=== PATIENT | male | born 1990 | race Caucasian/White ===

== ENCOUNTER 2016-10-30 11:38 | Emergency (ER) | payer SELFPAY ==
--- NOTE | 2016-10-30 11:59 | ER Document Report ---
ED Wound - General Chief Complaint: Wound Infection Stated Complaint: ABSCESS/LEFT WRIST Notes: Patient is a 25-year-old male, past medical history ADHD, presents with 3 days of a left wrist abscess that is increasing in size. He thinks that he was bitten by ants a few days ago. He denies numbness, tingling, fevers, drainage out of the wound or injury. TRAVEL OUTSIDE OF THE [place] IN LAST 30 DAYS: No - Related Data Allergies/Adverse Reactions: clarithromycin [From Biaxin] Adverse Reaction (Verified 10/30/16 11:52) Past Medical History - General Information source: Patient - Social History Smoking Status: Never Smoker Family History: Reviewed & Not Pertinent Renal/ Medical History: Denies: Hx Peritoneal Dialysis - Immunizations Hx Diphtheria, Pertussis, Tetanus Vaccination: Yes Review of Systems - Review of Systems Notes: REVIEW OF SYSTEMS: CONSTITUTIONAL: -fevers, -chills EENT: -eye pain, -difficulty swallowing, -nasal congestion CARDIOVASCULAR:-chest pain, -syncope. RESPIRATORY: -cough, -SOB GASTROINTESTINAL: -abdominal pain, - nausea, -vomiting, -diarrhea GENITOURINARY: -dysuria, -hematuria MUSCULOSKELETAL: -back pain, -neck pain SKIN: +left wrist abscess HEMATOLOGIC: -easy bruising or bleeding. LYMPHATIC: -swollen, enlarged glands. NEUROLOGICAL: -altered mental status or loss of consciousness, -headache, - neurologic symptoms PSYCHIATRIC: -anxiety, -depression. ALL OTHER SYSTEMS REVIEWED AND NEGATIVE. Physical Exam - Vital signs Vitals: Temp Pulse Resp BP Pulse Ox 98.7 F 73 16 127/62 H 100 10/30/16 11:40 10/30/16 11:40 10/30/16 11:40 10/30/16 11:40 10/30/16 11:40 - Notes Notes: PHYSICAL EXAMINATION: GENERAL: Well-appearing, well-nourished and in no acute distress. HEAD: Atraumatic, normocephalic. EYES: Pupils equal round and reactive to light, extraocular movements intact, sclera anicteric, conjunctiva are normal. ENT: nares patent, oropharynx clear without exudates. Moist mucous membranes. NECK: Normal range of motion, supple without lymphadenopathy LUNGS: Breath sounds clear to auscultation bilaterally and equal. No wheezes rales or rhonchi. HEART: Regular rate and rhythm without murmurs ABDOMEN: Soft, nontender, normoactive bowel sounds. No guarding, no rebound. No masses appreciated. EXTREMITIES: 3 cm pointed abscess with surrounding erythema over lateral left wrist, strong radial and ulnar pulses, brisk capillary refill, all tendons intact, normal range of motion, no pitting or edema. No cyanosis. NEUROLOGICAL: Cranial nerves grossly intact. Normal speech, normal gait. Normal sensory, motor, and reflex exams. PSYCH: Normal mood, normal affect. Course - Re-evaluation Re-evalutation: Abscess I&D'ed with moderate amount of pus. Will treat with doxycycline because of surrounding cellulitis. Patient given strict return precautions and he understands. - Vital Signs Vital signs: Temp Pulse Resp BP Pulse Ox 98.7 F 73 16 127/62 H 100 10/30/16 11:40 10/30/16 11:40 10/30/16 11:40 10/30/16 11:40 10/30/16 11:40 Procedures - Incision and Drainage Left Lateral Wrist Time completed: 12:15 Type: Simple Anesthetic type: 1% Lidocaine mL's of anesthetic: 7 Blade size: 11 I&D procedure: Betadine prep applied Incision Method: Incision made by scalpel Amount/type of drainage: 5 mL purulent drainage Discharge - Discharge Clinical Impression: Abscess, wrist Condition: Good Disposition: HOME, SELF-CARE Additional Instructions: ABSCESS: You have an abscess (boil). This a pus-forming infection, usually due to staph. Some boils may be left to drain on their own, but most require lancing. From the time the tender lump first appears, it may be three or four days before the abscess is ready to jonny. Local heat and rest help at this stage of treatment. An antibiotic may prevent spread of the infection. Once the abscess is opened, packing may be placed into it. This is done so pus is not sealed inside by premature closure of the cavity. The packing will be removed at your follow-up visit or you may be advised to remove it yourself at home. Sometimes this packing must be replaced a few times during healing. The wound will heal with surprisingly little scar. Depending on the size and location of an abscess, healing can take one to four weeks. You may shower and wash the area around the incision site two or three times a day. Antibiotics may be prescribed, but are usually not necessary after an abscess has been drained. If you develop fever, chills, worsening pain, or increasing swelling in the area, call the doctor or return immediately. POST INCISION AND DRAINAGE: You have had an incision made to allow drainage of an abscess. The incision must remain open so that pus and debris can drain from the wound. If the abscess cavity is large, packing is placed. This keeps the tissues from collapsing and trapping pus inside, while the body shrinks the cavity. The packing may need to be replaced every day or two. The physician will instruct you on the packing. Keep a bulky dressing over the area. Replace it if it becomes saturated with blood or pus. Do not disturb the packing (if present). You may shower and cleanse the area with gentle soap and warm water two or three times a day. Local warmth may be soothing, and may promote faster healing. Return if you develop high fever or chills, or if you note spreading redness, increasing swelling, or increasing tenderness. MRSA CELLULITIS: You have an infection of your skin and underlying soft tissues called cellulitis. This is due to bacteria, which can enter through any break in the skin, or even through an irritated hair follicle. Untreated, cellulitis will usually worsen and may form an abscess which requires draining. Although many bacterial organisms can cause cellulitis and abscess formations, the most likely bacteria is Methicillin-Resistant Staph Aureus, or MRSA for short. Antibiotics are required. Usually, warm packs or warm soaks, and elevation of the infected area are recommended. You should start getting better within 24 to 36 hours. Most infections respond quickly to the right medication. Follow-up care is important, however, to check for abscess (boil) formation, unsuspected foreign body, or resistant infection. If you develop fever, chills, or if the area of infection is becoming rapidly more swollen or painful, call the doctor at once. DOXYCYCLINE: Doxycycline (Vibramycin, Doryx) is an antibiotic of the tetracycline family. This type of drug is useful for infections of the respiratory tract and genital tract, and is sometimes used for intestinal infections. Unlike most tetracyclines, doxycycline can be taken with food. It is longer acting, and (usually) less prone to side effects than regular tetracycline. Tetracycline antibiotics can stain immature teeth and SHOULD NOT BE TAKEN BY CHILDREN, NURSING MOTHERS, OR WOMEN. Tetracyclines can make you more prone to sunburn. Abdominal cramping, nausea, and diarrhea are occasional side effects. Women may experience vaginal yeast infections. Call the doctor at once if you develop hives, itching, shortness of breath , or lightheadedness. FOLLOW-UP CARE: Most simple abscesses will not require a follow up visit. If you had packing placed in the abscess, remove it as instructed by the physician. If you have been referred to a physician for follow-up care, call the physicians office for an appointment as you were instructed or within the next two days. If you experience worsening or a significant change in your symptoms, return to the Emergency Department at any time for re-evaluation. Prescriptions: Doxycycline Hyclate 100 mg PO BID #14 capsule
[2016-10-30] MEDS ORDERED: LIDOCAINE 1% INJ-PF (10 MG/ML) 30 ML SDV ONE (12:00)
[2016-10-30] MEDS ORDERED: BACITRACIN ZINC OINTMENT 15 GM TP ONE (12:11)
[2016-10-30] MEDS ORDERED: LIDOCAINE 2% INJ-PF (20 MG/ML) 10 ML AMPUL INFIL ONE (12:11)
[2016-10-30 12:21] VITALS: BP 131/66
== END 2016-10-30 12:20 | disposition home or self-care (01) ==
LOC: ER 11:38
PROC: 0H9EXZZ Drainage of Left Lower Arm Skin, External Approach (ICD-10-PCS; principal; 2016-10-30)
DX: L02.414 Cutaneous abscess of left upper limb (principal); F90.9 Attention-deficit hyperactivity disorder, unspecified type; Z88.3 Allergy status to other anti-infective agents
CPT/HCPCS: 99283; J3490

== ENCOUNTER 2016-11-02 21:18 | Emergency (ER) | payer SELFPAY ==
[2016-11-02] MEDS ORDERED: NORMAL SALINE 1000 ML 1,000 ML IV ONE (23:34)
[2016-11-02] MEDS ORDERED: ACETAMINOPHEN 325 MG TABLET PO ONE (23:34)
[2016-11-02] MEDS ORDERED: ONDANSETRON HCL INJ/PF 4 MG/2 ML SDV IV ONE (23:34)
--- NOTE | 2016-11-02 23:40 | ER Document Report ---
ED GI/ - General Chief Complaint: Fever, chills Stated Complaint: FEVER Mode of Arrival: Ambulatory Information source: Patient TRAVEL OUTSIDE OF THE [place] IN LAST 30 DAYS: No - HPI Patient complains to provider of: Vomiting Notes: 11/02/16 23:37 Patient arrives with complaints of fever. The patient was seen 3 days ago for an abscess to the left wrist. He had this I&D'd and was discharged home on doxycycline. He's been taking the doxycycline. He states that this site looks significantly better than when he was here 3 days ago. He states that yesterday started having abdominal pain and vomiting. Also had associated fever. States that yesterday he vomited once and states that it was red in color. He's had several episodes of vomiting since that time and has had no redness to it. He reports that he has frequent bowel movements, and that a few weeks ago he noticed a bowel movement that was nothing but blood. He denies any diarrhea or bloody stool currently. Tender fever since yesterday. He complains of some mid and left sided abdominal pain at this time. He denies any chest pain or shortness breath. He denies any dysuria or hematuria. Nothing seems to make his pain better or worse. He also complains of cold chills. No rash. No flank pain. No other complaints at this time. - Related Data Allergies/Adverse Reactions: clarithromycin [From Biaxin] Adverse Reaction (Verified 10/30/16 11:52) Past Medical History - Social History Smoking Status: Unknown if Ever Smoked Chew tobacco use (# tins/day): No Frequency of alcohol use: None Drug Abuse: None Family History: Reviewed & Not Pertinent Renal/ Medical History: Denies: Hx Peritoneal Dialysis - Immunizations Hx Diphtheria, Pertussis, Tetanus Vaccination: Yes Review of Systems - Review of Systems -: Yes All other systems reviewed and negative Physical Exam - Vital signs Vitals: Temp Pulse BP Pulse Ox 100.7 F H 121 H 128/65 H 100 11/02/16 21:41 11/02/16 21:41 11/02/16 21:41 11/02/16 21:41 - Notes Notes: GENERAL: alert, cooperative, nontoxic, no distress. HEAD: normocephalic, atraumatic EYES: conjunctiva pink without discharge, no external redness or swelling. EARS: no external swelling, no external redness NOSE: atraumatic, no external swelling MOUTH/THROAT: mucous membranes moist and pink, posterior pharynx without erythema, swelling, exudate. No trismus or drooling. NECK: soft, supple, full range of motion, no meningismus. CHEST: no distress, lungs clear and equal throughout. No wheezing, rales, rhonchi. CARDIAC: regular rate and rhythm, no murmur, normal capillary refill, normal pulses. No peripheral edema noted. ABDOMEN: Soft, mild tenderness to palpation to the left mid abdomen. No rebound tenderness or guarding.. BACK: full range of motion, no CVA tenderness. EXTREMITIES: full range of motion of all extremities. No redness, no swelling. NEURO: alert and oriented 3, no focal deficits, full range of motion of all extremities. PYSCH: appropriate mood, affect. Patient is cooperative. SKIN: pink, warm, dry, no rash. Healing abscess to the left wrist. There is no significant surrounding erythema. There is no purulent drainage. There is no fluctuance. No cellulitis to the arm. Normal pulse and sensation distally. Course - Re-evaluation Re-evalutation: 11/03/16 03:06 Patient is nontoxic appearing. Patient has been on doxycycline for 3 days for a left wrist abscess that was drained 3 days ago. He states that the abscess seems to gotten significant only better. Over the last 24 hours developed fever and vomiting. He has no signs of worsening cellulitis. He states that the abscess seems to be significantly improved. I appreciate a significant signs of infection of this area. His benign abdominal exam with some mild tenderness. He reports some frequent stools and occasionally seen blood in his stool. CT of the abdomen and pelvis shows no acute findings aside from splenomegaly. This point the patient does not appear septic as his white count is normal his lactate is normal. His vital signs have improved with antipyretics and fluids. Patient will be discharged home with Zofran for his nausea vomiting, instructions to continue taking his doxycycline. Follow up if not improving in the next 2-3 days. Return sooner if he is getting worse in anyway. Blood cultures and urine culture are currently pending. Patient will be referred to GI due to his frequent GI complaints. The patient is noted to have elevated blood pressure during today's emergency department visit. The patient was informed of this finding. The patient was instructed that this may be related to pre-hypertension and requires further evaluation with a primary care provider. The patient has no hypertensive symptoms at this time. The patient's emergency department workup and current diagnosis were explained to the patient and or family. Follow-up instructions were provided. Medications if prescribed were discussed. Instructions for when to return to the emergency department including specific worrisome symptoms were discussed with the patient and/or family. - Vital Signs Vital signs: Temp Pulse Resp BP Pulse Ox 98.4 F 96 18 122/60 96 11/03/16 01:25 11/03/16 01:25 11/03/16 01:25 11/03/16 01:25 11/03/16 01:25 - Laboratory Result Diagrams: 11/03/16 00:42 11/03/16 00:42 Laboratory results interpreted by me: 11/03/16 11/03/16 11/03/16 00:42 00:42 00:42 Seg Neutrophils % 88.8 H Lymphocytes % 5.5 L Chloride 97 L Urine Protein 30 H - Diagnostic Test Radiology reviewed: Image reviewed, Reports reviewed - Chest x-ray negative. CT abdomen and pelvis with IV and by mouth contrast shows mild splenomegaly, no other acute abdominal [place]. Discharge - Discharge Clinical Impression: Nausea & vomiting Qualifiers: Vomiting type: unspecified Vomiting Intractability: non-intractable Qualified Code(s): R11.2 - Nausea with vomiting, unspecified Fever Qualifiers: Fever type: unspecified Qualified Code(s): R50.9 - Fever, unspecified Condition: Stable Disposition: HOME, SELF-CARE Instructions: Vomiting ([facility]), Fever ([facility]) Additional Instructions: Take medications as prescribed. Continue taking her doxycycline. Follow-up if not improving in the next 2-3 days, sooner for increased abdominal pain, fever, persistent vomiting, or any further concerns. Follow-up with GI at the next available appointment due to year chronic abdominal complaints as well as occasional blood in her stool. Your blood pressure was elevated during today's visit. Have this rechecked with your doctor. Prescriptions: Ondansetron HCl [Zofran 4 mg Tablet] 1 tab PO Q6H PRN #10 tablet PRN Reason: Forms: Elevated Blood Pressure
[2016-11-03] MEDS ORDERED: NORMAL SALINE 1000 ML 1,000 ML IV ONE (00:29)
[2016-11-03 01:01] LABS: ABSOLUTE LYMPHOCYTES (AUTO) 0.5 10^3/uL (0.5-4.7); ABSOLUTE MONOCYTES (AUTO) 0.4 10^3/uL (0.1-1.4); ABSOLUTE NEUT (AUTO) 7.6 10^3/uL (1.7-8.2); BASOPHILS % (AUTO) 0.4 % (0-2); EOSINOPHILS % (AUTO) 0.1 % (0-6); HEMATOCRIT 43.7 % (37.9-51.0); HEMOGLOBIN 15.2 g/dL (13.5-17.0); HGB HCT DIFFERENCE 1.9; LYMPHOCYTES % (AUTO) 5.5 % (13-45); MEAN CORPUSCULAR HEMOGLOBIN 31.9 pg (27.0-33.4); MEAN CORPUSCULAR HGB CONC 34.8 g/dL (32.0-36.0); MEAN CORPUSCULAR VOLUME 92 fl (80-97); MONOCYTES % (AUTO) 5.2 % (3-13); RED BLOOD COUNT 4.78 10^6/uL (4.35-5.55); RED CELL DISTRIBUTION WIDTH 11.6 % (11.5-14.0); SEGMENTED NEUTROPHILS % (AUTO) 88.8 % (42-78); WHITE BLOOD COUNT 8.6 10^3/uL (4.0-10.5)
[2016-11-03 01:06] LABS: APPEARANCE,URINE CLEAR; BILIRUBIN,URINE NEGATIVE (NEGATIVE); GLUCOSE, URINE NEGATIVE (NEGATIVE); KETONES,URINE NEGATIVE (NEGATIVE); LEUKOCYTE ESTERASE,URINE NEGATIVE (NEGATIVE); NITRITE,URINE NEGATIVE (NEGATIVE); PROTEIN,URINE 30 mg/dL (NEGATIVE); URINE SPECIFIC GRAVITY 1.023; UROBILINOGEN,URINE NEGATIVE mg/dL (<2.0)
[2016-11-03 01:14] LABS: ALANINE AMINOTRANSFERASE 38 U/L (21-72); ALBUMIN 4.3 g/dL (3.5-5.0); ALKALINE PHOSPHATASE 69 U/L (38-126); ANION GAP 13 (5-19); ASPARTATE AMINO TRANSFERASE 36 U/L (17-59); BILIRUBIN,DIRECT 0.2 mg/dL (0.0-0.4); BILIRUBIN,TOTAL 0.8 mg/dL (0.2-1.3); BLOOD UREA NITROGEN 15 mg/dL (7-20); CALCIUM 9.6 mg/dL (8.4-10.2); CARBON DIOXIDE 30 mmol/L (22-30); CHLORIDE 97 mmol/L (98-107); CREATININE RESULT 0.96 mg/dL (0.52-1.25); GLUCOSE 109 mg/dL (75-110); LIPASE 100.8 U/L (23-300); POTASSIUM 4.9 mmol/L (3.6-5.0); SODIUM 140.3 mmol/L (137-145); TOTAL PROTEIN 7.2 g/dL (6.3-8.2)
[2016-11-03 01:26] LABS: PROTHROMBIN TIME 13.2 SEC (11.4-15.4)
[2016-11-03 01:27] LABS: PARTIAL THROMBOPLASTIN TIME 29.6 SEC (23.5-35.8)
[2016-11-03 01:28] VITALS: BP 122/60
== END 2016-11-03 03:25 | disposition home or self-care (01) ==
LOC: ER 21:18
DX: R50.9 Fever, unspecified (principal); R16.1 Splenomegaly, not elsewhere classified; R10.9 Unspecified abdominal pain; R11.2 Nausea with vomiting, unspecified; K92.1 Melena; R19.4 Change in bowel habit; L02.414 Cutaneous abscess of left upper limb; Z98.890 Other specified postprocedural states; R03.0 Elevated blood-pressure reading, without diagnosis of hypertension
CPT/HCPCS: 99284; 96361; 96374; 36415; 87040; 87086; 83605; 83690; 85025; 85610; 85730; 80053; 81001; 71020; 74177; J2405; J7030